=== PATIENT | female | born 1930 | race Caucasian/White ===

== ENCOUNTER 2017-05-16 14:27 | Observation (INO) | payer MEDICARE, BC, MEDICAID ==
--- NOTE | 2017-05-16 15:36 | EDM.PDOC ---
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 She has no recollection of the event. Has a pHx of LOC from low blood sugar only. BS when EMS arrived was 99. Denies any chest pain. Came to during transport, fully alert on arrival. 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 (see below) (none) - Related Data Allergies Allergy/AdvReac Type Severity Reaction Status Date / Time codeine Allergy Cannot Verified 05/17/15 16:13 Remember Home Meds: Home Meds Acetaminophen [Tylenol Extra Strength] 500 mg PO Q6H PRN 05/17/15 [History] Acetaminophen [Tylenol] 650 mg PO BEDTIME 05/17/15 [History] Alendronate Sodium [Fosamax] 70 mg PO Q7D 05/17/15 [History] Aspirin [Halfprin] 81 mg PO DAILY 05/17/15 [History] Calcium Carb & Citrate/Vit D3 [Calcium + D3 ER Tablet] 2 tab PO DAILY 05/17/15 [ History] Calcium Carbonate [Tums] 500 mg PO ASDIRECTED PRN 05/17/15 [History] Clopidogrel [Plavix] 75 mg PO DAILY 05/17/15 [History] Glucagon,Human Recombinant [Glucagen] 1 mg IM ONETIME PRN 05/17/15 [History] Insulin Detemir [Levemir] 12 unit SQ BEDTIME 05/17/15 [History] Insulin Lispro [Humalog] SQ ASDIRECTED PRN 05/17/15 [History] Latanoprost [Xalatan 0.005% Ophth Soln] 1 drop EYEBOTH BEDTIME 05/17/15 [History ] Levothyroxine Sodium [Synthroid] 75 mcg PO DAILY 05/17/15 [History] Lisinopril 5 mg PO DAILY 05/17/15 [History] Lutein/Minerals/Vit A,C & E [Ocuvite] 2 tab PO DAILY 05/17/15 [History] Magnesium Citrate [Citrate of Magnesia] 296 ml PO DAILY PRN 05/17/15 [History] Magnesium Hydroxide [Milk of Magnesia] 30 ml PO ASDIRECTED PRN 05/17/15 [History ] Meclizine HCl 12.5 mg PO BID 05/17/15 [History] Metoprolol Tartrate [Lopressor] 25 mg PO BID 05/17/15 [History] Mirtazapine [Remeron] 15 mg PO BEDTIME 05/17/15 [History] Multivitamin [Multivitamins] 1 tab PO DAILY 05/17/15 [History] Nitroglycerin [Nitrostat] 0.4 mg SL ASDIRECTED PRN 05/17/15 [History] Omeprazole [Prilosec] 20 mg PO ACBREAKFAST 05/17/15 [History] Phenol/Sodium Phenolate [Throat [place]] PO ASDIRECTED PRN 05/17/15 [History] Polyethylene Glycol 3350 [MiraLAX] 17 gm PO BID 05/17/15 [History] atorvaSTATin [Lipitor] 40 mg PO BEDTIME 05/17/15 [History] traMADol HCl [Ultram] 50 mg PO TID 05/17/15 [History] Past Medical History Other Musculoskeletal History: RESTLESS LEG SYNDROME Other Endocrine/Metabolic History: ON INSULIN FOUR TIMES A DAY Social & Family History - Tobacco Use Smoking Status *Q: Never Smoker - Recreational Drug Use Recreational Drug Use: No ED ROS GENERAL - Review of Systems Review Of Systems: See Below Constitutional: Reports: No Symptoms HEENT: Reports: No Symptoms Respiratory: Reports: No Symptoms Cardiovascular: Reports: Syncope Endocrine: Reports: No Symptoms GI/Abdominal: Reports: No Symptoms : Reports: No Symptoms Musculoskeletal: Reports: No Symptoms Skin: Reports: No Symptoms Neurological: Reports: No Symptoms Psychiatric: Reports: No Symptoms - Physical Exam Exam: See Below Exam Limited By: No Limitations General Appearance: Alert, WD/WN, No Apparent Distress Eye Exam: Bilateral Eye: Normal Inspection Ears: Normal External Exam, Normal Canal, Hearing Grossly Normal Nose: Normal Inspection, Normal Mucosa, No Blood Throat/Mouth: Normal Inspection, Normal Lips, Normal Teeth, Normal Oropharynx, Normal Voice, No Airway Compromise Head Exam: Atraumatic, Normocephalic Neck: Normal Inspection, Supple Respiratory/Chest: No Respiratory Distress, Lungs Clear, Normal Breath Sounds, No Accessory Muscle Use Cardiovascular: Regular Rate, Rhythm, No Edema GI/Abdominal: Normal Bowel Sounds, Soft, Non-Tender, No Distention Neuro Exam (Abbreviated): Alert, Oriented, CN II-XII Intact, Normal Cognition Back Exam: Normal Inspection, Full Range of Motion. No: CVA Tenderness (R), CVA Tenderness (L) Extremities: Normal Inspection, Normal Range of Motion, Non-Tender, No Pedal Edema Psychiatric: Normal Affect, Normal Mood Skin Exam: Warm, Dry, Intact, Normal Color, No Rash Course - Vital Signs Text/Narrative:: Accucheck 86, deanna appiah given Orthostats- - Orders/Labs/Meds Orders: Active Orders 24 hr Category Date Time Status Accu Check [Blood Glucose Check, Bedside] [RC] ONETIME Care 05/16/17 15:24 Active Cardiac Monitoring [RC] .As Directed Care 05/16/17 15:25 Active Orthostatic Vital Signs [RC] ASDIRECTED Care 05/16/17 15:23 Active UA W/MICROSCOPIC [URIN] Stat Lab 05/16/17 15:25 Uncollected Labs: Laboratory Tests 05/16/17 05/16/17 05/16/17 Range/Units 15:35 15:35 15:35 WBC 9.0 (4.5-12.0) X10-3/uL RBC 3.97 (3.23-5.20) x10(6)uL Hgb 11.7 (11.5-15.5) g/dL Hct 34.9 (30.0-51.3) % MCV 87.8 (80-96) fL MCH 29.6 (27.7-33.6) pg MCHC 33.7 (32.2-35.4) g/dL RDW 13.3 (11.5-15.5) % Plt Count 321 (125-369) X10(3)uL Sodium 133 L (135-145) mmol/L Potassium 4.9 (3.5-5.3) mmol/L Chloride 98 L (100-110) mmol/L Carbon Dioxide 27 (23-29) mmol/L BUN 21 (8-23) mg/dL Creatinine 0.8 (0.6-1.3) mg/dL Est Cr Clr Drug Dosing TNP Estimated GFR (MDRD) > 60 (>60) BUN/Creatinine Ratio 26.3 H (9-20) Glucose 122 H (80-116) mg/dL Calcium 9.7 (8.6-10.2) mg/dL Troponin I < 0.01 L (0.02-0.06) NG/ML Departure - Departure Time of Disposition: 16:30 Disposition: Refer to Observation Condition: Fair Clinical Impression: Syncope Qualifiers: Syncope type: vasovagal syncope Qualified Code(s): R55 - Syncope and collapse - Discharge Information - My Orders Last 24 Hours: My Active Orders 05/16/17 15:23 Orthostatic Vital Signs [RC] ASDIRECTED 05/16/17 15:24 Accu Check [Blood Glucose Check, Bedside] [RC] ONETIME 05/16/17 15:25 Cardiac Monitoring [RC] .As Directed UA W/MICROSCOPIC [URIN] Stat - Assessment/Plan Last 24 Hours: My Active Orders 05/16/17 15:23 Orthostatic Vital Signs [RC] ASDIRECTED 05/16/17 15:24 Accu Check [Blood Glucose Check, Bedside] [RC] ONETIME 05/16/17 15:25 Cardiac Monitoring [RC] .As Directed UA W/MICROSCOPIC [URIN] Stat
[2017-05-16] MEDS ORDERED: Acetaminophen 325 MG Tab PO PRN (16:14)
[2017-05-16] MEDS ORDERED: Sodium Chloride 0.9% 10 ML Syringe FLUSH PRN (16:14)
[2017-05-16] MEDS ORDERED: Ondansetron 4 MG Tab.DIS PO PRN (16:14)
[2017-05-16] MEDS ORDERED: MAGNESIUM HYDROXIDE PO PRN (16:20)
[2017-05-16] MEDS ORDERED: Non-Formulary Medication 1 Each (Nitroglycerin [Nitrostat] 0.4 MG) SL PRN (16:20)
[2017-05-16] MEDS ORDERED: INSULIN LISPRO 4 UNIT SQ PRN (16:20)
[2017-05-16] MEDS ORDERED: CALCIUM CARBONATE 500 MG PO PRN (16:20)
[2017-05-16] MEDS ORDERED: GLUCAGON HUMAN RECOMBINANT 1 MG IM PRN (16:20)
[2017-05-16] MEDS ORDERED: Sodium Chloride 0.9% 1,000 ML IV SCH (16:30)
[2017-05-16] MEDS ORDERED: Non-Formulary Medication 1 Each (Alendronate Sodium [Fosamax] 70 MG) PO SCH (16:30)
[2017-05-16] MEDS: Insulin Lispro 100 Unit/ML 3 ML KwikPen*PT OWN MED SUBCUT SCH (18:30)
--- NOTE | 2017-05-16 19:01 | PCM.HP ---
H&P History of Present Illness - General Date of Service: 05/16/17 Admit Problem/Dx: Admission Diagnosis/Problem Admission Diagnosis/Problem Syncope Source of Information: Patient, Family History Limitations: Reports: No Limitations - History of Present Illness Initial Comments - Free Text/Narative: This is a 86-year-old female patient that is a resident at the [facility]. 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 She was unresponsive and so they called the ambulance. The next thing the patient remembers is being on the gurney being taken out of the [facility]. The daughter reports it was about 20 minutes until this happened. Patient's never passed out before. 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 On the way over in the ambulance she was incontinent of stool. No incontinence of urine. There is no shaking or tremors. She has no history of seizures. Her blood sugar was checked on the scene and was 99. Her blood pressure was noted to be 90/50 and pulse 46. She feels fine now. She denies diplopia, blurred vision, dysphagia, aphasia, lateralizing weakness. She normally walks with a walker. - Related Data Allergies/Adverse Reactions: Allergies Allergy/AdvReac Type Severity Reaction Status Date / Time codeine Allergy Cannot Verified 05/16/17 18:31 Remember Home Medications: Home Meds Acetaminophen [Tylenol Extra Strength] 500 mg PO Q6H PRN 05/17/15 [History] Acetaminophen [Tylenol] 650 mg PO BEDTIME 05/17/15 [History] Alendronate Sodium [Fosamax] 70 mg PO Q7D 05/17/15 [History] Aspirin [Halfprin] 81 mg PO DAILY 05/17/15 [History] Glucagon,Human Recombinant [Glucagen] 1 mg IM ONETIME PRN 05/17/15 [History] Insulin Lispro [Humalog] 4 units SQ BIDMEALS PRN 05/17/15 [History] Latanoprost [Xalatan 0.005% Ophth Soln] 1 drop EYEBOTH BEDTIME 05/17/15 [History ] Levothyroxine Sodium [Synthroid] 75 mcg PO DAILY 05/17/15 [History] Magnesium Hydroxide [Milk of Magnesia] 30 ml PO ASDIRECTED PRN 05/17/15 [History ] Meclizine HCl 12.5 mg PO BID 05/17/15 [History] Metoprolol Tartrate [Lopressor] 50 mg PO BID 05/17/15 [History] Nitroglycerin [Nitrostat] 0.4 mg SL ASDIRECTED PRN 05/17/15 [History] Omeprazole [Prilosec] 20 mg PO ACBREAKFAST 05/17/15 [History] Polyethylene Glycol 3350 [MiraLAX] 17 gm PO BID 05/17/15 [History] atorvaSTATin [Lipitor] 40 mg PO BEDTIME 05/17/15 [History] traMADol HCl [Ultram] 50 mg PO BID 05/17/15 [History] Insulin Detemir [Levemir Flextouch] 13 unit SQ BEDTIME 05/16/17 [History] Insulin Lispro [Humalog] 4 unit SQ ACDINNER 05/16/17 [History] Past Medical History Other Musculoskeletal History: RESTLESS LEG SYNDROME Other Endocrine/Metabolic History: ON INSULIN FOUR TIMES A DAY Social & Family History - Tobacco Use Smoking Status *Q: Never Smoker Second Hand Smoke Exposure: No - Caffeine Use Caffeine Use: Reports: Coffee - Recreational Drug Use Recreational Drug Use: No H&P Review of Systems - Review of Systems: Review Of Systems: See Below General: Reports: Weakness HEENT: Reports: No Symptoms Pulmonary: Reports: No Symptoms Cardiovascular: Reports: No Symptoms Gastrointestinal: Reports: Stool Incontinence Genitourinary: Reports: No Symptoms Musculoskeletal: Reports: No Symptoms Skin: Reports: No Symptoms Psychiatric: Reports: No Symptoms Neurological: Reports: Change in Speech, Other (See history of present illness) Immunologic: Reports: No Symptoms Exam - Exam Exam: See Below - Vital Signs Vital Signs: Last Vital Signs Temp 97.2 F 05/16/17 14:40 Pulse 58 L 05/16/17 14:40 Resp 18 05/16/17 14:40 BP 92/55 L 05/16/17 14:40 Pulse Ox 95 05/16/17 14:40 Weight: 170 lb 9.6 oz - Exam General: Alert, Oriented, Cooperative. No: Mild Distress HEENT: PERRLA, EACs Clear, Hearing Intact, Mucosa Moist & [place], Posterior Pharynx Clear, Pupils Equal, Pupils Reactive, TMs Clear. No: Rhinitis Neck: Supple, Trachea Midline. No: Carotid Bruit, JVD Lungs: Clear to Auscultation, Normal Respiratory Effort. No: Crackles, Rales, Rhonchi, Rub Cardiovascular: Regular Rate, Regular Rhythm, Normal S1, Normal S2. No: Irregular Rhythm, Systolic Murmur, Diastolic Murmur GI/Abdominal Exam: Normal Bowel Sounds, Soft, Non-Tender, No Distention, No Abnormal Bruit Back Exam: Normal Inspection, Full Range of Motion Extremities: Normal Inspection, Normal Range of Motion, Non-Tender, No Pedal Edema Skin: Warm Neurological: Cranial Nerves Intact, Reflexes Equal Bilateral, Normal Speech, Normal Tone. No: Focal Deficit, Abnormal Gait Neuro Extensive - Mental Status: Alert, Oriented x3, Normal Mood/Affect, Normal Cognition, Memory Intact Neuro Extensive - Motor, Sensory, Reflexes: CN II-XII Intact, Normal Reflexes Psychiatric: Alert, Normal Affect, Normal Mood - Patient Data Lab Results Last 24 hrs: Laboratory Results - last 24 hr 05/16/17 Range/Units 18:23 POC Glucose 278 H (80-116) mg/dL Result Diagrams: 05/16/17 15:35 05/16/17 15:35 *Q Meaningful Use (ADM) - VTE *Q VTE Criteria *Q: - Stroke *Q Stroke Criteria *Q: - AMI *Q AMI Criteria *Q: - Problem List (1) Syncope SNOMED Code(s): 583330787 ICD Code: R55 - SYNCOPE AND COLLAPSE Status: Acute Priority: High Current Visit: Yes Qualifiers: Syncope type: vasovagal syncope Qualified Code(s): R55 - Syncope and collapse (2) Hyponatremia SNOMED Code(s): 94660734 ICD Code: E87.1 - HYPO-OSMOLALITY AND HYPONATREMIA Status: Acute Priority : Low Current Visit: No Problem Details: REtrict fluids. Repalce with normal sordium crystalloid (3) Diabetes type 2, controlled SNOMED Code(s): 31107224 ICD Code: E11.9 - TYPE 2 DIABETES MELLITUS WITHOUT COMPLICATIONS Status: Chronic Priority: Low Current Visit: No Problem Details: Tight control of sugars with SSI (4) HTN (hypertension) SNOMED Code(s): 59331750 ICD Code: I10 - ESSENTIAL (PRIMARY) HYPERTENSION Status: Chronic Priority : Low Current Visit: No Problem Details: Resume home meds (5) Palliative care status SNOMED Code(s): 430901954 ICD Code: Z51.5 - ENCOUNTER FOR PALLIATIVE CARE Status: Acute Current Visit: Yes Problem List Initiated/Reviewed/Updated: Yes Orders Last 24hrs: Active Orders 24 hr Category Date Time Status Alendronate Sodium [Fosamax] Med 05/16/17 16:30 Active 70 mg PO Q7D Aspirin [Halfprin] Med 05/17/17 09:00 Active 81 mg PO DAILY Calcium Carb & Citrate/Vit D3 [Calcium + D3 ER Tablet] Med 05/17/17 09:00 Active 2 tab PO DAILY Calcium Carbonate [Tums] Med 05/16/17 16:20 Active 500 mg PO ASDIRECTED PRN Clopidogrel [Plavix] Med 05/17/17 09:00 Active 75 mg PO DAILY Glucagon,Human Recombinant [Glucagen] Med 05/16/17 16:20 Active 1 mg IM ONETIME PRN Insulin Detemir [Levemir] Med 05/16/17 21:00 Active 12 unit SQ BEDTIME Insulin Lispro [Humalog] Med 05/16/17 16:20 Active 4 units SQ ASDIRECTED PRN Latanoprost [Xalatan 0.005% Ophth Soln] Med 05/16/17 21:00 Active 1 drop EYEBOTH BEDTIME Levothyroxine Sodium [Synthroid] Med 05/17/17 09:00 Active 75 mcg PO DAILY Lisinopril [Lisinopril] Med 05/17/17 09:00 Active 5 mg PO DAILY Lutein/Minerals/Vit A,C & E [Ocuvite] Med 05/17/17 09:00 Active 2 tab PO DAILY Magnesium Hydroxide [Milk of Magnesia] Med 05/16/17 16:20 Active 30 ml PO ASDIRECTED PRN Meclizine HCl [Meclizine HCl] Med 05/16/17 21:00 Active 12.5 mg PO BID Metoprolol Tartrate [Lopressor] Med 05/16/17 21:00 Active 25 mg PO BID Mirtazapine [Remeron] Med 05/16/17 21:00 Active 15 mg PO BEDTIME Multivitamin [Multivitamins] Med 05/17/17 09:00 Active 1 tab PO DAILY Nitroglycerin [Nitrostat] Med 05/16/17 16:20 Active 0.4 mg SL ASDIRECTED PRN Omeprazole Med 05/17/17 06:00 Active 20 mg PO 0600 Patient's Own Medication [Ptom] Med 05/16/17 21:00 Active 0 each PO BID Sodium Chloride 0.9% [Normal Saline] 1,000 ml Med 05/16/17 16:30 Active IV ASDIRECTED atorvaSTATin [Lipitor] Med 05/16/17 21:00 Active 40 mg PO BEDTIME traMADol [Ultram] Med 05/16/17 21:00 Active 50 mg PO TID Medication Orders Acetaminophen (Tylenol) 650 mg PO Q4H PRN PRN Reason: Pain (Mild 1-3)/fever Sodium Chloride (Normal Saline) 1,000 mls @ 50 mls/hr IV ASDIRECTED [facility] Non-Formulary Medication (Alendronate Sodium [Fosamax]) 70 mg PO Q7D [facility] Non-Formulary Medication (Aspirin [Halfprin]) 81 mg PO DAILY [facility] Non-Formulary Medication (Calcium Carb & Citrate/Vit D3 [Calcium + D3 Er Tablet] ) 2 tab PO DAILY [facility] Non-Formulary Medication (Calcium Carbonate [Tums]) 500 mg PO ASDIRECTED PRN PRN Reason: Indigestion Non-Formulary Medication (Clopidogrel [Plavix]) 75 mg PO DAILY [facility] Non-Formulary Medication (Glucagon,Human Recombinant [Glucagen]) 1 mg IM ONETIME PRN PRN Reason: Hypoglycemia Non-Formulary Medication (Insulin Detemir [Levemir]) 12 unit SQ BEDTIME [facility] Non-Formulary Medication (Insulin Lispro [Humalog]) 4 units SQ ASDIRECTED PRN PRN Reason: Hyperglycemia Non-Formulary Medication (Latanoprost [Xalatan 0.005% Ophth Soln]) 1 drop EYEBOTH BEDTIME [facility] Non-Formulary Medication (Levothyroxine Sodium [Synthroid]) 75 mcg PO DAILY [facility] Non-Formulary Medication (Lisinopril [Lisinopril]) 5 mg PO DAILY [facility] Non-Formulary Medication (Lutein/Minerals/Vit A,C & E [Ocuvite]) 2 tab PO DAILY [facility] Non-Formulary Medication (Magnesium Hydroxide [Milk Of Magnesia]) 30 ml PO ASDIRECTED PRN PRN Reason: Constipation Non-Formulary Medication (Meclizine Hcl [Meclizine Hcl]) 12.5 mg PO BID [facility] Non-Formulary Medication (Metoprolol Tartrate [Lopressor]) 25 mg PO BID [facility] Non-Formulary Medication (Mirtazapine [Remeron]) 15 mg PO BEDTIME [facility] Non-Formulary Medication (Multivitamin [Multivitamins]) 1 tab PO DAILY [facility] Non-Formulary Medication (Nitroglycerin [Nitrostat]) 0.4 mg SL ASDIRECTED PRN PRN Reason: Chest Pain Non-Formulary Medication (Atorvastatin [Lipitor]) 40 mg PO BEDTIME [facility] Omeprazole (Omeprazole) 20 mg PO 0600 [facility] Ondansetron HCl (Zofran Odt) 4 mg PO Q6H PRN PRN Reason: nausea, able to take PO (Polyethylene Glycol 3350 [Miralax] 17 Gm)*Pt Own Med* 0 each PO BID [facility] Sodium Chloride (Saline Flush) 10 ml FLUSH ASDIRECTED PRN PRN Reason: Keep Vein Open Tramadol HCl (Ultram) 50 mg PO TID [facility] Assessment/Plan Comment:: 1. Admit to observation with telemetry. 2. Patient continues on medication. 3. Diabetic diet with sliding scale of insulin that she takes at home per snider home orders. 4.. Up with assist. 5. EKG. 6. Labs in the a.m.
[2017-05-16] MEDS ORDERED: Insulin Lispro 100 Unit/ML 3 ML KwikPen*PT OWN MED SUBCUT PRN (19:08)
[2017-05-16] MEDS ORDERED: INSULIN DETEMIR 100 UNIT/ML SUBCUT SCH ×2 (21:00)
[2017-05-16] MEDS ORDERED: LATANOPROST 0.005% EYEBOTH SCH (21:00)
[2017-05-16] MEDS ORDERED: MECLIZINE HCL 12.5 MG PO SCH (21:00)
[2017-05-16] MEDS ORDERED: Mirtazapine 15 MG Tab PO SCH (21:00)
[2017-05-16] MEDS: Metoprolol Tartrate 25 MG Tab*PT OWN MED PO SCH (21:19)
[2017-05-16] MEDS: POLYETHYLENE GLYCOL 17 GM PO SCH (21:20)
[2017-05-16] MEDS: traMADol 50 MG Tab PO SCH (21:25)
[2017-05-17] MEDS ORDERED: Omeprazole 20 MG Cap.CR*PT OWN MED PO SCH (06:00)
[2017-05-17] MEDS ORDERED: Insulin Lispro 100 Unit/ML 3 ML KwikPen SUBCUT SCH ×2 (08:00→12:00)
[2017-05-17] MEDS: Insulin Lispro 100 Unit/ML 3 ML KwikPen*PT OWN MED SUBCUT SCH (08:36)
--- NOTE | 2017-05-17 08:51 | PCM.PN ---
- General Info Date of Service: 05/17/17 Admission Dx/Problem (Free Text): Patient had a good night. She did not have any lightheadedness, dizziness, palpitations, lateralized weakness, dysphagia, aphasia. She feels good and wants to go home. - Patient Data Vitals - Most Recent: Last Vital Signs Temp 98.1 F 05/17/17 01:49 Pulse 70 05/17/17 06:00 Resp 17 05/17/17 06:00 BP 169/75 H 05/17/17 01:49 Pulse Ox 96 05/17/17 06:00 Orthostatic Blood Pressure [ 156/66 Standing] Orthostatic Blood Pressure [ 162/44 Supine] Weight - Most Recent: 166 lb 11.2 oz I&O - Last 24 Hours: Intake & Output 05/16/17 05/17/17 05/17/17 22:59 06:59 14:59 Intake Total 315 384 Output Total 650 1200 Balance -335 -816 Lab Results Last 24 Hours: Laboratory Results - last 24 hr 05/16/17 05/16/17 05/16/17 Range/Units 18:15 18:23 19:08 POC Glucose 278 H D (80-116) mg/dL Troponin I < 0.01 L (0.02-0.06) NG/ML Urine Color Yellow (YELLOW) Urine Appearance Clear (CLEAR) Urine pH 5.0 (5.0-6.5) Ur Specific [place] 1.015 (1.010-1.025) Urine Protein Negative (NEGATIVE) mg/dL Urine Glucose (UA) 250 H (NEGATIVE) mg/dL Urine Ketones Negative (NEGATIVE) mg/dL Urine Occult Blood Moderate H (NEGATIVE) Urine Nitrite Negative (NEGATIVE) Urine Bilirubin Negative (NEGATIVE) Urine Urobilinogen Normal (NEGATIVE) mg/dL Ur Leukocyte Esterase Small H (NEGATIVE) Urine RBC 0-5 (0) Urine WBC 0-5 (0) Ur Squamous Epith Cells Moderate H (NS,R,O) Urine Bacteria Moderate H (NS) Hyaline Casts Few H (NS) 05/17/17 Range/Units 06:51 POC Glucose 214 H (80-116) mg/dL Troponin I (0.02-0.06) NG/ML Urine Color (YELLOW) Urine Appearance (CLEAR) Urine pH (5.0-6.5) Ur Specific [place] (1.010-1.025) Urine Protein (NEGATIVE) mg/dL Urine Glucose (UA) (NEGATIVE) mg/dL Urine Ketones (NEGATIVE) mg/dL Urine Occult Blood (NEGATIVE) Urine Nitrite (NEGATIVE) Urine Bilirubin (NEGATIVE) Urine Urobilinogen (NEGATIVE) mg/dL Ur Leukocyte Esterase (NEGATIVE) Urine RBC (0) Urine WBC (0) Ur Squamous Epith Cells (NS,R,O) Urine Bacteria (NS) Hyaline Casts (NS) Med Orders - Current: Current Medications Acetaminophen (Tylenol) 650 mg PO Q4H PRN PRN Reason: Pain (Mild 1-3)/fever Alendronate Sodium (Fosamax) 70 mg PO Q7D@0600 [facility] Aspirin (Halfprin) 81 mg PO DAILY [facility] Atorvastatin Calcium (Lipitor) 40 mg PO BEDTIME [facility] Last Admin: 05/16/17 21:19 Dose: 40 mg Sodium Chloride (Normal Saline) 1,000 mls @ 50 mls/hr IV ASDIRECTED [facility] Last Admin: 05/16/17 19:55 Dose: 50 mls/hr Insulin Detemir (Levemir) 13 unit SUBCUT BEDTIME [facility] Last Admin: 05/16/17 21:17 Dose: 13 units Insulin Human Lispro (Humalog) 4 unit SUBCUT 08,18 [facility] PRN Reason: Protocol Last Admin: 05/17/17 08:36 Dose: 4 units Insulin Human Lispro (Humalog) 5 unit SUBCUT 12 [facility] PRN Reason: Protocol Insulin Human Lispro (Humalog) 3 unit SUBCUT ONETIME ONE PRN Reason: Protocol Stop: 05/17/17 18:31 Last Admin: 05/16/17 18:30 Dose: 3 units Insulin Human Lispro (Humalog) 0 unit SUBCUT TIDMEALS [facility] PRN Reason: Protocol Last Admin: 05/17/17 07:13 Dose: 2 units Latanoprost (Xalatan 0.005% Ophth Soln) 0 ml EYEBOTH BEDTIME [facility] Last Admin: 05/16/17 21:22 Dose: 1 drop Levothyroxine Sodium (Levothyroxine) 75 mcg PO DAILY [facility] Metoprolol Tartrate (Lopressor) 25 mg PO BID [facility] Last Admin: 05/16/17 21:19 Dose: 25 mg Non-Formulary Medication (Calcium Carb & Citrate/Vit D3 [Calcium + D3 Er Tablet] ) 2 tab PO DAILY [facility] Non-Formulary Medication (Calcium Carbonate [Tums]) 500 mg PO ASDIRECTED PRN PRN Reason: Indigestion Non-Formulary Medication (Glucagon,Human Recombinant [Glucagen]) 1 mg IM ONETIME PRN PRN Reason: Hypoglycemia Non-Formulary Medication (Lutein/Minerals/Vit A,C & E [Ocuvite]) 2 tab PO DAILY [facility] Non-Formulary Medication (Magnesium Hydroxide [Milk Of Magnesia]) 30 ml PO ASDIRECTED PRN PRN Reason: Constipation Non-Formulary Medication (Multivitamin [Multivitamins]) 1 tab PO DAILY [facility] Non-Formulary Medication (Nitroglycerin [Nitrostat]) 0.4 mg SL ASDIRECTED PRN PRN Reason: Chest Pain Omeprazole (Omeprazole) 20 mg PO 0600 [facility] Last Admin: 05/17/17 06:28 Dose: 20 mg Ondansetron HCl (Zofran Odt) 4 mg PO Q6H PRN PRN Reason: nausea, able to take PO (Polyethylene Glycol 3350 [Miralax] 17 Gm)*Pt Own Med* 0 each PO BID [facility] Last Admin: 05/16/17 21:20 Dose: Not Given (Meclizine Hcl [ Meclizine Hcl] 12.5 Mg)*Pt Own Med* 0 each PO BIDMEALS [facility] Sodium Chloride (Saline Flush) 10 ml FLUSH ASDIRECTED PRN PRN Reason: Keep Vein Open Tramadol HCl (Ultram) 50 mg PO TID [facility] Last Admin: 05/16/17 21:25 Dose: 50 mg Discontinued Medications Insulin Detemir (Levemir) 12 unit SUBCUT BEDTIME [facility] Mirtazapine (Remeron) 15 mg PO BEDTIME [facility] Last Admin: 05/16/17 21:43 Dose: Not Given Non-Formulary Medication (Insulin Lispro [Humalog]) 4 units SQ ASDIRECTED PRN PRN Reason: Hyperglycemia (Meclizine Hcl [ Meclizine Hcl] 12.5 Mg)*Pt Own Med* 0 each PO BID [facility] Last Admin: 05/16/17 21:20 Dose: 12.5 each - Exam General: Alert, Oriented, Cooperative Neck: Supple Lungs: Clear to Auscultation, Normal Respiratory Effort Cardiovascular: Regular Rate, Regular Rhythm, No Murmurs Back Exam: Normal Inspection Extremities: Normal Inspection, Normal Range of Motion Neurological: Normal Speech, Normal Tone, Strength Equal Bilateral Psy/Mental Status: Alert, Normal Affect, Normal Mood - Problem List & Annotations (1) Syncope SNOMED Code(s): 762160234 Code(s): R55 - SYNCOPE AND COLLAPSE Status: Acute Priority: High Current Visit: Yes Qualifiers: Syncope type: vasovagal syncope Qualified Code(s): R55 - Syncope and collapse (2) Hyponatremia SNOMED Code(s): 96455878 Code(s): E87.1 - HYPO-OSMOLALITY AND HYPONATREMIA Status: Acute Priority : Low Current Visit: No Annotation/Comment:: REtrict fluids. Repalce with normal sordium crystalloid (3) Diabetes type 2, controlled SNOMED Code(s): 45116985 Code(s): E11.9 - TYPE 2 DIABETES MELLITUS WITHOUT COMPLICATIONS Status: Chronic Priority: Low Current Visit: No Annotation/Comment:: Tight control of sugars with SSI (4) HTN (hypertension) SNOMED Code(s): 09578010 Code(s): I10 - ESSENTIAL (PRIMARY) HYPERTENSION Status: Chronic Priority : Low Current Visit: No Annotation/Comment:: Resume home meds (5) Palliative care status SNOMED Code(s): 961049352 Code(s): Z51.5 - ENCOUNTER FOR PALLIATIVE CARE Status: Acute Current Visit: Yes - Problem List Review Problem List Initiated/Reviewed/Updated: Yes - My Orders Last 24 Hours: My Active Orders 05/16/17 19:03 EKG 12 Lead [EK] Stat 05/16/17 19:26 Accu Check [Blood Glucose Check, Bedside] [RC] QIDACANDBED 05/16/17 21:00 Insulin Detemir [Levemir] 13 unit SUBCUT BEDTIME 05/17/17 08:00 Insulin Lispro [HumaLOG] 4 unit SUBCUT Insulin Lispro [HumaLOG] See Protocol SUBCUT TIDMEALS 05/17/17 08:49 Ready for Discharge [RC] PER UNIT ROUTINE 05/17/17 12:00 Insulin Lispro [HumaLOG] 5 unit SUBCUT 12 05/17/17 18:30 Insulin Lispro [HumaLOG] 3 unit SUBCUT ONETIME ONE 05/18/17 06:00 Alendronate [Fosamax] 70 mg PO Q7D@0600 - Plan Plan:: 1. Discharge back to the [facility] home on her current medications. 2. Reassurance given to the patient.
--- NOTE | 2017-05-17 08:54 | PCM.DCSUM1 ---
Discharge Summary - Hospital Course Free Text/Narrative:: Hospital course-sodium was just slightly low. Her urine was negative and CBC in normal. Patient was observed overnight on telemetry. Pulse was in the 70s-80s normal sinus rhythm with occasional PVC. Blood pressure is actually a little bit elevated from the norm. She had no symptoms through the night as we observed her. There is no indication to proceed with a head scan. I told the patient this is most likely syncope. We will discharge her to home. Brief History: This is a 86-year-old female patient that is a resident at the [facility]. She was having her hair done and exiting in no the redrying machine operator noticed that her head was down and she was out. She was unresponsive and so they called the ambulance. The next thing the patient remembers is being on the gurney being taken out of the [facility]. The daughter reports it was about 20 minutes until this happened. Patient's never passed out before. 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 On the way over in the ambulance she was incontinent of stool. No incontinence of urine. There is no shaking or tremors. She has no history of seizures. Her blood sugar was checked on the scene and was 99. Her blood pressure was noted to be 90/50 and pulse 46. She feels fine now. She denies diplopia, blurred vision, dysphagia, aphasia, lateralizing weakness. She normally walks with a walker. - Discharge Data Discharge Date: 05/17/17 Discharge Disposition: Home, Self-Care 01 Condition: Good - Discharge Diagnosis/Problem(s) (1) Syncope SNOMED Code(s): 472045404 ICD Code: R55 - SYNCOPE AND COLLAPSE Status: Acute Priority: High Current Visit: Yes Qualifiers: Syncope type: vasovagal syncope Qualified Code(s): R55 - Syncope and collapse (2) Hyponatremia SNOMED Code(s): 12920477 ICD Code: E87.1 - HYPO-OSMOLALITY AND HYPONATREMIA Status: Acute Priority : Low Current Visit: No Problem Details: REtrict fluids. Repalce with normal sordium crystalloid (3) Diabetes type 2, controlled SNOMED Code(s): 75501530 ICD Code: E11.9 - TYPE 2 DIABETES MELLITUS WITHOUT COMPLICATIONS Status: Chronic Priority: Low Current Visit: No Problem Details: Tight control of sugars with SSI (4) HTN (hypertension) SNOMED Code(s): 10725737 ICD Code: I10 - ESSENTIAL (PRIMARY) HYPERTENSION Status: Chronic Priority : Low Current Visit: No Problem Details: Resume home meds (5) Palliative care status SNOMED Code(s): 999506136 ICD Code: Z51.5 - ENCOUNTER FOR PALLIATIVE CARE Status: Acute Current Visit: Yes - Patient Instructions Diet: Diabetic Diet Activity: As Tolerated Driving: Do Not Drive Showering/Bathing: May Shower Other/Special Instructions: 1. Recheck with Dr. Dionisio Mcrae in 7-10 days. 2. If there is any discrepancies between this med list and the [facility] home. She should continue the medications as they're prescribed previously at the [facility]. - Discharge Plan Home Medications: Home Meds Acetaminophen [Tylenol] 650 mg PO BEDTIME 05/17/15 [History] Alendronate Sodium [Fosamax] 70 mg PO SA 05/17/15 [History] Aspirin [Halfprin] 81 mg PO DAILY 05/17/15 [History] Glucagon,Human Recombinant [Glucagen] 1 mg IM ONETIME PRN 05/17/15 [History] Insulin Lispro [Humalog] 4 units SQ 08,18 PRN 05/17/15 [History] Latanoprost [Xalatan 0.005% Ophth Soln] 1 drop EYEBOTH BEDTIME 05/17/15 [History ] Levothyroxine Sodium [Synthroid] 75 mcg PO DAILY 05/17/15 [History] Magnesium Hydroxide [Milk of Magnesia] 30 ml PO DAILY 05/17/15 [History] Meclizine HCl 12.5 mg PO BID@07,0530 05/17/15 [History] Nitroglycerin [Nitrostat] 0.4 mg SL Q5M PRN 05/17/15 [History] Omeprazole [Prilosec] 20 mg PO ACBREAKFAST 05/17/15 [History] Polyethylene Glycol 3350 [MiraLAX] 17 gm PO BID 05/17/15 [History] atorvaSTATin [Lipitor] 40 mg PO BEDTIME 05/17/15 [History] traMADol HCl [Ultram] 50 mg PO BID 05/17/15 [History] Acetaminophen [Tylenol Extra Strength] 500 mg PO 07,11,15,19,23 05/16/17 [ History] Acetaminophen [Tylenol] 650 mg PO Q4H PRN 05/16/17 [History] Carboxymethylcellulose Sodium [Refresh Tears] 1 drop EYEBOTH BID 05/16/17 [ History] Insulin Detemir [Levemir Flextouch] 13 unit SQ BEDTIME 05/16/17 [History] Insulin Lispro [Humalog Kwikpen U-100] 5 unit SQ 1200 PRN 05/16/17 [History] metFORMIN HCl [Metformin HCl] 500 mg PO DAILY 05/16/17 [History] Insulin Lispro [HumaLOG] 0 unit SUBCUT TIDMEALS #0 pen 05/17/17 [Rx] Insulin Lispro [HumaLOG] 4 unit SUBCUT 08,18 #0 pen 05/17/17 [Rx] Insulin Lispro [HumaLOG] 5 unit SUBCUT 12 #0 pen 05/17/17 [Rx] Insulin Lispro [Humalog Kwikpen U-100] 1 - 6 unit SUBCUT TIDMEALS PRN 05/17/17 [ History] Metoprolol Tartrate 25 mg PO BID 05/17/17 [History] Metoprolol Tartrate [Lopressor] 25 mg PO BID #0 tablet 05/17/17 [Rx] Multivitamin [Multivitamins] 1 tab PO DAILY 05/17/17 [Rx] Propylene Glycol/Peg 400 [Systane 0.3-0.4% Eye Drops] 1 drop EYEBOTH Q2H PRN 01/28 [History] Patient Handouts: Fall Prevention in Hospitals, Adult, Syncope, [id number], Venous Thromboembolism Prevention Forms: ED Department Discharge Referrals: Wesley Mcrae MD [Primary Care Provider] - - Discharge Summary/Plan Comment DC Time >30 min.: No - Patient Data Vitals - Most Recent: Last Vital Signs Temp 98.1 F 05/17/17 01:49 Pulse 70 05/17/17 06:00 Resp 17 05/17/17 06:00 BP 169/75 H 05/17/17 01:49 Pulse Ox 96 05/17/17 06:00 Orthostatic Blood Pressure [ 156/66 Standing] Orthostatic Blood Pressure [ 162/44 Supine] Weight - Most Recent: 166 lb 11.2 oz I&O - Last 24 hours: Intake & Output 05/16/17 05/17/17 05/17/17 22:59 06:59 14:59 Intake Total 315 384 Output Total 650 1200 Balance -335 -816 Lab Results - Last 24 hrs: Laboratory Results - last 24 hr 05/16/17 05/16/17 05/16/17 Range/Units 18:15 18:23 19:08 POC Glucose 278 H D (80-116) mg/dL Troponin I < 0.01 L (0.02-0.06) NG/ML Urine Color Yellow (YELLOW) Urine Appearance Clear (CLEAR) Urine pH 5.0 (5.0-6.5) Ur Specific [place] 1.015 (1.010-1.025) Urine Protein Negative (NEGATIVE) mg/dL Urine Glucose (UA) 250 H (NEGATIVE) mg/dL Urine Ketones Negative (NEGATIVE) mg/dL Urine Occult Blood Moderate H (NEGATIVE) Urine Nitrite Negative (NEGATIVE) Urine Bilirubin Negative (NEGATIVE) Urine Urobilinogen Normal (NEGATIVE) mg/dL Ur Leukocyte Esterase Small H (NEGATIVE) Urine RBC 0-5 (0) Urine WBC 0-5 (0) Ur Squamous Epith Cells Moderate H (NS,R,O) Urine Bacteria Moderate H (NS) Hyaline Casts Few H (NS) 05/17/17 Range/Units 06:51 POC Glucose 214 H (80-116) mg/dL Troponin I (0.02-0.06) NG/ML Urine Color (YELLOW) Urine Appearance (CLEAR) Urine pH (5.0-6.5) Ur Specific [place] (1.010-1.025) Urine Protein (NEGATIVE) mg/dL Urine Glucose (UA) (NEGATIVE) mg/dL Urine Ketones (NEGATIVE) mg/dL Urine Occult Blood (NEGATIVE) Urine Nitrite (NEGATIVE) Urine Bilirubin (NEGATIVE) Urine Urobilinogen (NEGATIVE) mg/dL Ur Leukocyte Esterase (NEGATIVE) Urine RBC (0) Urine WBC (0) Ur Squamous Epith Cells (NS,R,O) Urine Bacteria (NS) Hyaline Casts (NS) Med Orders - Current: Current Medications Acetaminophen (Tylenol) 650 mg PO Q4H PRN PRN Reason: Pain (Mild 1-3)/fever Acetaminophen (Tylenol Extra Strength) 500 mg PO 5XDAY [facility] Alendronate Sodium (Fosamax) 70 mg PO Q7D@0600 [facility] Artificial Tears (Refresh Tears 0.5%) 0 ml EYEBOTH BID [facility] Aspirin (Halfprin) 81 mg PO DAILY [facility] Atorvastatin Calcium (Lipitor) 40 mg PO BEDTIME [facility] Last Admin: 05/16/17 21:19 Dose: 40 mg Sodium Chloride (Normal Saline) 1,000 mls @ 50 mls/hr IV ASDIRECTED [facility] Last Admin: 05/16/17 19:55 Dose: 50 mls/hr Insulin Detemir (Levemir) 13 unit SUBCUT BEDTIME [facility] Last Admin: 05/16/17 21:17 Dose: 13 units Insulin Human Lispro (Humalog) 4 unit SUBCUT 08,18 [facility] PRN Reason: Protocol Last Admin: 05/17/17 08:36 Dose: 4 units Insulin Human Lispro (Humalog) 5 unit SUBCUT 12 [facility] PRN Reason: Protocol Insulin Human Lispro (Humalog) 3 unit SUBCUT ONETIME ONE PRN Reason: Protocol Stop: 05/17/17 18:31 Last Admin: 05/16/17 18:30 Dose: 3 units Insulin Human Lispro (Humalog) 0 unit SUBCUT TIDMEALS [facility] PRN Reason: Protocol Last Admin: 05/17/17 07:13 Dose: 2 units Latanoprost (Xalatan 0.005% Oph Soln) 0 ml EYEBOTH BEDTIME [facility] Last Admin: 05/16/17 21:22 Dose: 1 drop Levothyroxine Sodium (Levothyroxine) 75 mcg PO DAILY [facility] Metformin HCl (Glucophage) 500 mg PO DAILY [facility] Metoprolol Tartrate (Lopressor) 25 mg PO BID [facility] Last Admin: 05/16/17 21:19 Dose: 25 mg Non-Formulary Medication (Calcium Carb & Citrate/Vit D3 [Calcium + D3 Er Tablet] ) 2 tab PO DAILY [facility] Non-Formulary Medication (Calcium Carbonate [Tums]) 500 mg PO ASDIRECTED PRN PRN Reason: Indigestion Non-Formulary Medication (Glucagon,Human Recombinant [Glucagen]) 1 mg IM ONETIME PRN PRN Reason: Hypoglycemia Non-Formulary Medication (Lutein/Minerals/Vit A,C & E [Ocuvite]) 2 tab PO DAILY [facility] Non-Formulary Medication (Magnesium Hydroxide [Milk Of Magnesia]) 30 ml PO ASDIRECTED PRN PRN Reason: Constipation Non-Formulary Medication (Multivitamin [Multivitamins]) 1 tab PO DAILY [facility] Non-Formulary Medication (Nitroglycerin [Nitrostat]) 0.4 mg SL ASDIRECTED PRN PRN Reason: Chest Pain Omeprazole (Omeprazole) 20 mg PO 0600 [facility] Last Admin: 05/17/17 06:28 Dose: 20 mg Ondansetron HCl (Zofran Odt) 4 mg PO Q6H PRN PRN Reason: nausea, able to take PO (Polyethylene Glycol 3350 [Miralax] 17 Gm)*Pt Own Med* 0 each PO BID [facility] Last Admin: 05/16/17 21:20 Dose: Not Given (Meclizine Hcl [ Meclizine Hcl] 12.5 Mg)*Pt Own Med* 0 each PO BIDMEALS [facility] Sodium Chloride (Saline Flush) 10 ml FLUSH ASDIRECTED PRN PRN Reason: Keep Vein Open Tramadol HCl (Ultram) 50 mg PO TID [facility] Last Admin: 05/16/17 21:25 Dose: 50 mg Discontinued Medications Insulin Detemir (Levemir) 12 unit SUBCUT BEDTIME [facility] Mirtazapine (Remeron) 15 mg PO BEDTIME [facility] Last Admin: 05/16/17 21:43 Dose: Not Given Non-Formulary Medication (Insulin Lispro [Humalog]) 4 units SQ ASDIRECTED PRN PRN Reason: Hyperglycemia (Meclizine Hcl [ Meclizine Hcl] 12.5 Mg)*Pt Own Med* 0 each PO BID [facility] Last Admin: 05/16/17 21:20 Dose: 12.5 each *Q Meaningful Use (DIS) - VTE *Q VTE Criteria *Q: - Stroke *Q Stroke Criteria *Q: - AMI *Q AMI Criteria *Q:
[2017-05-17] MEDS ORDERED: metFORMIN 500 MG Tab *PTOM PO SCH (09:00)
[2017-05-17] MEDS ORDERED: VIT A C PO SCH (09:00)
[2017-05-17] MEDS ORDERED: Non-Formulary Medication 1 Each (Multivitamin [Multivitamins] 1 TAB) PO SCH (09:00)
[2017-05-17] MEDS ORDERED: Levothyroxine 75 MCG Tab *PTOM PO SCH (09:00)
[2017-05-17] MEDS ORDERED: Non-Formulary Medication 1 Each (Lisinopril [Lisinopril] 5 MG) PO SCH (09:00)
[2017-05-17] MEDS ORDERED: Carboxymethylcellulose Sodium 0.5% Ophth Soln 15 ML Bottle *PTOM EYEBOTH SCH (09:00)
[2017-05-17] MEDS ORDERED: LUTEIN PO SCH (09:00)
[2017-05-17] MEDS ORDERED: MINERALS PO SCH (09:00)
[2017-05-17] MEDS ORDERED: Non-Formulary Medication 1 Each (Clopidogrel [Plavix] 75 MG) PO SCH (09:00)
[2017-05-17] MEDS ORDERED: MECLIZINE HCL 12.5 MG PO SCH (09:00)
[2017-05-17] MEDS ORDERED: [UNRECOGNIZED DRUG - OTHER] PO SCH (09:00)
[2017-05-17] MEDS: Metoprolol Tartrate 25 MG Tab*PT OWN MED PO SCH (09:05)
[2017-05-17 09:09] VITALS: BP 148/58
[2017-05-17] MEDS ORDERED: Acetaminophen 500 MG Tab *PTOM PO SCH (10:00)
[2017-05-17] MEDS: POLYETHYLENE GLYCOL 17 GM PO SCH (10:15)
[2017-05-17] MEDS: traMADol 50 MG Tab PO SCH (10:19)
[2017-05-17] MEDS ORDERED: Insulin Lispro 100 Unit/ML 3 ML KwikPen SUBCUT ONE (18:30)
[2017-05-18] MEDS ORDERED: Alendronate 70 MG Tab PO SCH (06:00)
== END 2017-05-17 11:07 | disposition home or self-care (01) ==
LOC: FB.ED 14:27 → FB.MS 16:14
PROVIDERS: ADMIT Emergency Medicine; ATTEND Family Medicine
DX: R55 Syncope and collapse (principal); E87.1 Hypo-osmolality and hyponatremia; E11.9 Type 2 diabetes mellitus without complications; I10 Essential (primary) hypertension; Z51.5 Encounter for palliative care; Z79.82 Long term (current) use of aspirin; Z79.4 Long term (current) use of insulin; Z79.899 Other long term (current) drug therapy; Z79.84 Long term (current) use of oral hypoglycemic drugs; Z88.8 Allergy status to other drugs, medicaments and biological substances
CPT/HCPCS: 36415; 80048; 81001; 82962; 83735; 84484; 85027; 93005; 99284; A9270; G0378; J7040; 99217; 99285